=== PATIENT | female | born 1995 | race African-American/Black ===

== ENCOUNTER 2022-02-27 10:17 | Inpatient (IN) | payer MEDICAID, SELFPAY ==
[2022-02-27 10:19] VITALS: BP 130/91; PULSE 107; RESP 18; TEMP 36.4; O2SAT 98; BMI 24.9
--- NOTE | 2022-02-27 11:14 | EDS_ITS ---
HPI History of Present Illness Chief Complaint: ETOH Intox Informant: patient Narrative Narrative: Patient is a 26-year-old female with history of amphetamine and alcohol abuse presenting for detox. Patient states her last drink was this morning she also snorted meth this morning. She drinks about 1/5 a day of kaibab vodka. She denies any IV drug use. She denies a history of DTs but has been in detox before. She most recently was in detox in August 23 and was sober for about a month until he started drinking again. She denies any known history of hepatitis or HIV. Patient notes that she is currently living at home alone in an apartment and is starting to feel depressed which is what triggered her to come to the ER today for alcohol detox. She denies any thoughts wanting to or harm herself. She states sometimes she does punch her self. No other complaints at this time. No physical complaints. [facility] Medical History Alcohol abuse Allergy/AdvReac Type Severity Reaction Status Date / Time No Known Allergies Allergy Verified 02/27/22 10:22 Social History Smoking Status: Current every day smoker tobacco type: cigarettes ROS ROS ED Constitutional Constitutional ED: Denies chills or fever(s) Eyes Eyes: Denies change in vision ENT ENT ED: Denies rhinorrhea or sore throat Cardiovascular Cardiovascular: Denies chest pain Respiratory/Chest Respiratory/Chest: Denies cough or dyspnea Gastrointestinal Gastrointestinal: Denies abdominal pain, nausea or vomiting Musculoskeletal Musculoskeletal: Denies arthralgias or myalgias Integumentary Denies rash Neurologic Neurologic: Denies headache(s) or weakness Psychiatric Psychiatric: Reports depression; Denies anxiety, suicidal ideation or suicidal thoughts EXAM Physical Exam Const Vital Signs: 02/27/22 10:19 02/27/22 11:19 Temperature 97.5 F L 98.9 F Temperature Source Temporal Temporal Pulse Rate 107 H 88 Respiratory Rate 18 16 Blood Pressure 130/91 H 128/78 H Blood Pressure Mean 104 94 Blood Pressure Source Monitor Pulse Ox 98 98 Oxygen Delivery Method Room Air Room Air Positive well nourished and well developed General Appearance ED: well developed and NAD HEENT Reports moist mucous membranes Eyes PERRL and EOMs intact bilaterally Neck supple and no JVD Chest Wall inspection of chest normal Resp normal respiratory effort and clear to auscultation bilaterally Cardio regular rhythm and no murmurs Rate: tachycardic GI soft to palpation, non-tender and non-distended Extremity General Extremety ED: Negative for edema or tenderness General Extremity: Negative for edema Neuro oriented x3 Neuro Narrative: No focal neurologic deficits appreciated Speech: speech normal Psych thought process normal Psych Narrative: Patient's affect is slightly inappropriate, she is smiling Mood & Affect: depressed Skin Lesions: no lesions Rashes: no rashes MDM MDM MDM Narrative Medical decision making narrative: Patient is evaluated for request of alcohol detox. Patient will be medically screened and then I will consult to the medicine team for detox. Patient is asking if she will be prescribed Vivitrol upon discharge. I informed her she will need to talk to addiction medicine specialist about that. Patient is admitted to the hospital service. She has a mild transaminitis I suspect secondary to her chronic alcohol use and her potassium is 3.1. Is ordered oral potassium supplementation. Magnesium level is ordered as well. Lab Data Attestation: I reviewed the patient's lab results. Labs: Laboratory Results - last 24 hr 02/27/22 11:12 Sodium 140 Potassium 3.1 L Chloride 105 Carbon Dioxide 27.0 Anion Gap 8 BUN 7 Creatinine 0.58 Estim Creat Clear Calc 141.68 Est GFR (MDRD) Af Amer 159 Est GFR (MDRD) Non-Af 131 BUN/Creatinine Ratio 12.0 Glucose 85 Calcium 8.8 Total Bilirubin 0.60 AST 56 H ALT 79 H Alkaline Phosphatase 91 Total Protein 6.8 Albumin 3.5 Globulin 3.3 Albumin/Globulin Ratio 1.1 Discharge Plan Triage Chief Complaint: ETOH Intox ED Provider: Georgia Rollins Dx/Rx/DC Orders Clinical Impression: Alcohol abuse, Alcohol dependence, Hypokalemia, Abnormal transaminases Primary Care Provider: Quintin Gonzalez Referrals: QUINTIN TORRE [Other] Disposition Disposition: Acute Care [facility]
[2022-02-27 11:19] VITALS: BP 128/78; PULSE 88; RESP 16; TEMP 37.2; O2SAT 98
[2022-02-27 11:25] LABS: Absolute Lymphocyte Count 2.64 X10^3/uL (0.83-4.51); Absolute Neutrophil Count 5.2 X10^3/uL (2.0-7.7); Basophil# 0.03 X10^3/uL; Basophil% 0.3 % (0-1); Eosinophil# 0.16 X10^3/uL; Eosinophils% 1.8 % (0-5); Hematocrit 46.7 % (37-47); Hemoglobin 15.6 g/dL (12.0-15.0); Lymphocyte # 2.64 X10^3/ul (0.83-4.51); Lymphocyte % 30.3 % (19-41); Mean Corp Hgb Conc 33.4 g/dL (32-36); Mean Corpuscular Hgb 32.4 pg (27.0-32.0); Mean Corpuscular Volume 96.9 fL (81-99); Mean Platelet Vol. 8.5 fl (6.2-12.0); Monocyte# 0.64 X10^3/uL; Monocyte% 7.4 % (0-10); NRBC Flagged by Analyzer 0 % (0-5); Neutrophil # 5.21 X10^3/uL (2.7-7.7); Platelet Count 323 K/mm3 (150-450); RBC Distribution Width CV 14.3 % (11.6-14.6); RBC Distribution Width SD 50.9 fl (35.1-43.9); Red Blood Count 4.82 M/mm3 (4.2-5.4); White Blood Count 8.7 K/mm3 (4.4-11.0)
[2022-02-27 11:41] LABS: ALB/GLOB Ratio 1.1 RATIO (0.9-2.4); AST(SGOT) 56 U/L (15-37); Alanine Aminotransfer ALT/SGPT 79 U/L (13-56); Albumin, Serum 3.5 g/dL (3.2-5.0); Alkaline Phosphatase 91 U/L (45-117); Anion Gap 8 (5-15); BUN 7 mg/dL (7-18); Calcium,Total 8.8 mg/dL (8.5-10.1); Chloride 105 mmol/L (98-107); Creatinine, Serum 0.58 mg/dL (0.55-1.02); EST Glomerular Filtration Rate 131 mL/min (>60); Est Glom Filt Rate - Afr Amer 159 mL/min (>60); Estimated Creatinine Clearance 141.68 ml/min; Globulin 3.3 g/dL (2.2-4.2); Glucose 85 mg/dL (74-106); Potassium 3.1 mmol/L (3.5-5.1); Protein, Total 6.8 g/dL (6.4-8.2); Sodium Level 140 mmol/L (136-145)
[2022-02-27] MEDS: Potassium Chloride Oral Tablet 20 MEQ PO (11:50)
--- NOTE | 2022-02-27 11:52 | NURSING ---
DR HADLEY TSE
--- NOTE | 2022-02-27 11:53 | PCM.HP.STD ---
HPI - General General Date of Admission: 02/27/22 Date of Service: 02/27/22 Chief Complaint: Desire for detoxification HPI Narrative PARK PATTERSON, is a 26 F with past medical history significant for alcohol dependence presented to the emergency department with desire for detoxification. Patient admits to drinking vodka daily. She drinks about 2 pints a day. She also admitted to tobacco use as well as methamphetamine use. On further questioning patient denied any tremors. No hallucination no nausea no vomiting. Admitted to regular nursing floor for medical stabilization [facility] Medical History Alcohol abuse Allergy/AdvReac Type Severity Reaction Status Date / Time No Known Allergies Allergy Verified 02/27/22 10:22 no significant family history Social History Smoking Status: Current every day smoker tobacco type: cigarettes ROS ROS Narrative GENERAL: denies fever, chills, night sweats, weight loss, anorexia HEENT: denies headache, sinus congestion, or drainage, dysphagia RESPIRATORY: denies cough, sputum production, shortness of breath, dyspnea on exertion CARDIAC: denies chest pain, palpitations, orthopnea, PND GASTROINTESTINAL: denies abdominal pain, nausea, vomiting, melena, GENITOURINARY: denies dysuria, urgency, frequency, heamaturia EXTREMITY: denies swelling MUSCULOSKELETAL: denies current joint pain or tenderness NEUROLOGIC: denies focal numbness, weakness, tingling HEMATOLOGIC: denies easy bruising and/or hemorrhage INTEGUMENT: denies rashes PSYCHIATRIC: denies suicidal or homicidal ideation Vital Signs Vital Signs Vital Signs: 02/27/22 10:19 02/27/22 11:19 Temperature 97.5 F L 98.9 F Temperature Source Temporal Temporal Pulse Rate 107 H 88 Respiratory Rate 18 16 Blood Pressure 130/91 H 128/78 H Blood Pressure Mean 104 94 Blood Pressure Source Monitor Pulse Ox 98 98 Oxygen Delivery Method Room Air Room Air Weight Weight: 72.121 kg Body Mass Index (BMI) 24.9 Physical Exam Narrative GENERAL: cooperative HEENT: Atraumatic; EYES; Anicteric, Normal Conjunctiva NECK; supple, normal thyroid, RESPIRATORY: Diminished to auscultation CARDIOVASCULAR: Regular S1 S2, GI: soft, normoactive bowel sounds, : No Renal angle tenderness; EXTREMITIES: No edema, no clubbing, MUSCULOSKELETAL: no muscle wasting NEURO: Awake; no lateralizing signs. SKIN: No Rash PSYCH; Flat affect Results Lab / Micro Data Result Diagrams: 02/27/22 11:12 Labs: Laboratory Results - last 24 hr 02/27/22 11:12: Sodium 140, Potassium 3.1 L, Chloride 105, Carbon Dioxide 27.0, Anion Gap 8, BUN 7, Creatinine 0.58, Estim Creat Clear Calc 141.68, Est GFR (MDRD) Af Amer 159, Est GFR (MDRD) Non-Af 131, BUN/Creatinine Ratio 12.0, Glucose 85, Calcium 8.8, Total Bilirubin 0.60, AST 56 H, ALT 79 H, Alkaline Phosphatase 91, Total Protein 6.8, Albumin 3.5, Globulin 3.3, Albumin/Globulin Ratio 1.1 Assessment & Plan Assessment/Plan (1) Alcohol abuse: (2) Alcohol dependence: (3) Hypokalemia: (4) Abnormal transaminases: PLAN: Plan Patient is a 26-year-old lady admitted with desire to undergo detoxification from chronic alcohol dependence 1. Acute alcohol dependence with desire for detoxification ? Patient has been admitted to regular nursing floor for medical stabilization using phenobarb taper 2. Hypokalemia ? Corrected per protocol 3. Elevated LFTs ? Secondary to alcohol use we will monitor 4. Polysubstance abuse ? Including methamphetamine and alcohol counseled on cessation 5. Mild intermittent asthma ? Patient is on albuterol as needed 6. Tobacco dependence - Counseled on cessation, offered nicotine patch for tobacco cravings 7. DVT prophylaxis ? Low risk did encourage ambulation Charges/Coding Visit Charges Inpatient E&M: 41265 Init Hosp L2
[2022-02-27 11:56] LABS: Internal QC Validated? YES +Cl - CLEAR BKGD; Pregnancy, Serum, hCG Quali. NEGATIVE Negative
[2022-02-27 11:57] VITALS: BP 114/78; PULSE 78; RESP 16; TEMP 37.2; O2SAT 98
[2022-02-27 12:23] VITALS: BMI 24.9
[2022-02-27 12:28] VITALS: BP 111/75; PULSE 90; RESP 18; TEMP 36.7; O2SAT 100
[2022-02-27] MEDS: Lactated Ringers 1,000 ML 125 ML IV (12:44)
[2022-02-27] MEDS: Potassium Chloride Oral Tablet 20 MEQ 40 MEQ PO (12:59)
[2022-02-27] MEDS: Phenobarbital 32.4 MG Tablet PO ×3 (12:59→19:52)
[2022-02-27] MEDS: 0.9% Saline Lock 10 ML Syringe IV (12:59)
[2022-02-27 13:04] LABS: Amphetamine Urine VISTA POSITIVE (<1000 ng/mL); Barbiturate Urine VISTA NEGATIVE (< 200 ng/mL); Benzodiazepine Urine VISTA NEGATIVE (< 200 ng/mL); Cocaine Urine VISTA NEGATIVE (< 300 ng/mL); Ecstacy Urine VISTA POSITIVE (< 500 ng/mL); Methadone Urine VISTA NEGATIVE (< 300 ng/mL); PCP Urine VISTA NEGATIVE (< 25 ng/mL); THC Urine VISTA NEGATIVE (< 50 ng/mL); Vista UDS pH Range 6
[2022-02-27 16:21] VITALS: BP 124/84; PULSE 89; RESP 18; TEMP 36.5; O2SAT 99
[2022-02-27] MEDS: [UNRECOGNIZED DRUG - OTHER] PO (17:11)
[2022-02-27 19:45] VITALS: BP 119/71; PULSE 92; RESP 16; TEMP 36.6; O2SAT 100
[2022-02-28 00:28] VITALS: BP 116/80; PULSE 86; RESP 14; TEMP 36.7; O2SAT 100
[2022-02-28] MEDS: Phenobarbital 32.4 MG Tablet PO ×6 (00:30→20:44)
[2022-02-28 05:09] VITALS: BP 104/75; PULSE 81; RESP 16; TEMP 36.5; O2SAT 99
--- NOTE | 2022-02-28 07:56 | PN.HOSP_ITS ---
Subjective Subjective Patient is a 26-year-old lady with history of alcoholic dependence presented wanting to undergo medical stabilization. Admitted to regular nursing floor currently on phenobarb taper Objective Data Objective Data Vital Signs: Vital Signs Temp Pulse Resp BP Pulse Ox O2 Del Method 97.7 F L 81 16 104/75 99 Room Air 02/28/22 05:09 02/28/22 05:09 02/28/22 05:09 02/28/22 05:09 02/28/22 05:02/28/22 05:09 Oxygen Delivery Method Room Air Weight: 72.121 kg Body Mass Index (BMI) 24.9 Intake & Output: Intake and Output for Last 24 Hours 02/26/22 02/27/22 02/28/22 23:59 23:59 23:59 Intake Total 572.92 / 572.92 Balance 572.92 / 572.92 Lab / Micro Data Result Diagrams: 02/27/22 11:12 02/27/22 11:12 Labs: Laboratory Results - last 24 hr 02/27/22 11:12: WBC 8.7, RBC 4.82, Hgb 15.6 H, Hct 46.7, MCV 96.9, MCH 32.4 H, MCHC 33.4, RDW Std Deviation 50.9 H, RDW Coeff of Nito 14.3, Plt Count 323, MPV 8.5, Immature Gran % (Auto) 0.200, Neut % (Auto) 60.0, Lymph % (Auto) 30.3, Sargent % (Auto) 7.4, Eos % (Auto) 1.8, Baso % (Auto) 0.3, Absolute Neuts (auto) 5.2, Absolute Lymphs (auto) 2.64, Nucleated RBC % 0 02/27/22 11:12: Serum , Qual NEGATIVE 02/27/22 11:12: Sodium 140, Potassium 3.1 L, Chloride 105, Carbon Dioxide 27.0, Anion Gap 8, BUN 7, Creatinine 0.58, Estim Creat Clear Calc 141.68, Est GFR (MDRD) Af Amer 159, Est GFR (MDRD) Non-Af 131, BUN/Creatinine Ratio 12.0, Glucose 85, Calcium 8.8, Total Bilirubin 0.60, AST 56 H, ALT 79 H, Alkaline Phosphatase 91, Total Protein 6.8, Albumin 3.5, Globulin 3.3, Albumin/Globulin Ratio 1.1 02/27/22 11:12: Ethyl Alcohol 135.0 02/27/22 11:12: Magnesium 2.0 02/27/22 12:40: Urine Opiates Screen NEGATIVE, Urine Methadone Screen NEGATIVE, Ur Barbiturates Screen NEGATIVE, Ur Phencyclidine Scrn NEGATIVE, Ur Amphetamines Screen POSITIVE H, MDMA (Ecstasy) Screen POSITIVE H, U Benzodiazepines Scrn NEGATIVE, Urine Cocaine Screen NEGATIVE, U Cannabinoids Screen NEGATIVE, Ur Drug Screen Comment Physical Exam Narrative GENERAL: cooperative HEENT: Atraumatic; EYES; Anicteric, Normal Conjunctiva NECK; supple, normal thyroid, RESPIRATORY: Diminished to auscultation CARDIOVASCULAR: Regular S1 S2, GI: soft, normoactive bowel sounds, : No Renal angle tenderness; EXTREMITIES: No edema, no clubbing, MUSCULOSKELETAL: no muscle wasting NEURO: Awake; no lateralizing signs. SKIN: No Rash PSYCH; Flat affect Assessment & Plan Assessment/Plan (1) Alcohol abuse: (2) Alcohol dependence: (3) Hypokalemia: (4) Abnormal transaminases: PLAN: Plan Patient is a 26-year-old lady admitted with desire to undergo detoxification from chronic alcohol dependence 1. Acute alcohol dependence with desire for detoxification ? Patient has been admitted to regular nursing floor for medical stabilization using phenobarb taper ? 02/28/2022 patient has tolerated the phenobarb taper well so far 2. Hypokalemia ? Corrected per protocol 3. Elevated LFTs ? Secondary to alcohol use we will monitor 4. Polysubstance abuse ? Including methamphetamine and alcohol counseled on cessation 5. Mild intermittent asthma ? Patient is on albuterol as needed 6. Tobacco dependence - Counseled on cessation, offered nicotine patch for tobacco cravings 7. DVT prophylaxis ? Low risk did encourage ambulation Charges/Coding Visit Charges Inpatient E&M: 87393 Subs Hosp L2
[2022-02-28] MEDS: Folic Acid 1 MG Tablet PO (08:57)
[2022-02-28] MEDS: Thiamine Hydrochloride 100 MG Tablet PO (08:57)
[2022-02-28 09:00] VITALS: BP 107/75; PULSE 79; RESP 18; TEMP 36.6; O2SAT 100
--- NOTE | 2022-02-28 11:49 | ADDICTION ---
Addendum entered by Li Issa 03/01/22 10:42: This senior copywriter spoke with pt this morning and informed TW that she would be admitting to [facility] on Friday. She reported that she gave me the wrong city. Ruslan, peer supporter, will transport to residential on Friday. Original Note: This senior copywriter met with PT to conduct ASAM, MSE, AUDIT, DUDIT assessments and to plan for d/c. PT A+Ox4 and participated actively. All assessments completed and placed in PT's chart. PT plans to f/u with follow-up treatment services, at the [facility] in [place]. PT did not indicate a need for transportation post d/c from [facility].
[2022-02-28] MEDS: Ondansetron 8 MG Tablet PO ×2 (12:32→20:44)
[2022-02-28 13:18] VITALS: BP 113/82; PULSE 87; RESP 18; TEMP 36.4; O2SAT 100
[2022-02-28 19:00] VITALS: BP 94/52; PULSE 85; RESP 18; TEMP 36.9; O2SAT 99
[2022-03-01 01:12] VITALS: BP 108/49; PULSE 78; RESP 16; TEMP 36.6; O2SAT 100
[2022-03-01] MEDS: Phenobarbital 32.4 MG Tablet PO ×6 (01:15→20:02)
[2022-03-01 04:52] VITALS: BP 111/75; PULSE 66; RESP 16; TEMP 36.4; O2SAT 100
--- NOTE | 2022-03-01 08:11 | PCM.PN.HOSP ---
Subjective Subjective Patient seen complaining of a spinning sensation prescribed Antivert for symptomatic relief Objective Data Objective Data Vital Signs: Vital Signs Temp Pulse Resp BP Pulse Ox O2 Del Method 97.5 F L 66 16 111/75 100 Room Air 03/01/22 04:52 03/01/22 04:52 03/01/22 04:52 03/01/22 04:52 03/01/22 04:52 03/01/22 04:52 Oxygen Delivery Method Room Air Weight: 72.121 kg Body Mass Index (BMI) 24.9 Intake & Output: Intake and Output for Last 24 Hours 02/27/22 02/28/22 03/01/22 23:59 23:59 23:59 Intake Total 572.92 / 572.92 Balance 572.92 / 572.92 Lab / Micro Data Result Diagrams: 02/27/22 11:12 02/27/22 11:12 Physical Exam Narrative GENERAL: cooperative HEENT: Atraumatic; EYES; Anicteric, Normal Conjunctiva NECK; supple, normal thyroid, RESPIRATORY: Diminished to auscultation CARDIOVASCULAR: Regular S1 S2, GI: soft, normoactive bowel sounds, : No Renal angle tenderness; EXTREMITIES: No edema, no clubbing, MUSCULOSKELETAL: no muscle wasting NEURO: Awake; no lateralizing signs. SKIN: No Rash PSYCH; Flat affect Assessment & Plan Assessment/Plan (1) Alcohol abuse: (2) Alcohol dependence: (3) Hypokalemia: (4) Abnormal transaminases: PLAN: Plan Patient is a 26-year-old lady admitted with desire to undergo detoxification from chronic alcohol dependence 1. Acute alcohol dependence with desire for detoxification ? Patient has been admitted to regular nursing floor for medical stabilization using phenobarb taper ? 02/28/2022 patient has tolerated the phenobarb taper well so far ?03/01/2022; Patient seen complaining of a spinning sensation prescribed Antivert for symptomatic 2. Hypokalemia ? Corrected per protocol 3. Elevated LFTs ? Secondary to alcohol use we will monitor 4. Polysubstance abuse ? Including methamphetamine and alcohol counseled on cessation 5. Mild intermittent asthma ? Patient is on albuterol as needed 6. Tobacco dependence - Counseled on cessation, offered nicotine patch for tobacco cravings 7. DVT prophylaxis ? Low risk did encourage ambulation Charges/Coding Visit Charges Inpatient E&M: 46563 Subs Hosp L2
[2022-03-01] MEDS: Folic Acid 1 MG Tablet PO (09:18)
[2022-03-01] MEDS: Thiamine Hydrochloride 100 MG Tablet PO (09:19)
[2022-03-01 11:00] VITALS: BP 105/70; PULSE 80; RESP 18; TEMP 36.6; O2SAT 98
[2022-03-01 16:52] VITALS: BP 110/78; PULSE 86; RESP 16; TEMP 36.9; O2SAT 100
[2022-03-01 20:01] VITALS: BP 113/73; PULSE 83; RESP 16; TEMP 36.7; O2SAT 99
[2022-03-02 02:45] VITALS: BP 100/62; PULSE 83; RESP 16; TEMP 36.6; O2SAT 99
[2022-03-02] MEDS: Phenobarbital 32.4 MG Tablet PO ×4 (02:48→20:23)
--- NOTE | 2022-03-02 07:29 | PCM.PN.HOSP ---
Subjective Subjective Patient seen, admits to improvement in her dizziness with meclizine. Plan is for patient to be transferred to an inpatient rehab facility?[facility] on 03/04/2022 Objective Data Objective Data Vital Signs: Vital Signs Temp Pulse Resp BP Pulse Ox O2 Del Method 97.9 F 83 16 100/62 99 Room Air 03/02/22 02:45 03/02/22 02:45 03/02/22 02:45 03/02/22 02:45 03/02/22 02:45 03/02/22 02:45 Oxygen Delivery Method Room Air Weight: 72.121 kg Body Mass Index (BMI) 24.9 Lab / Micro Data Result Diagrams: 02/27/22 11:12 02/27/22 11:12 Physical Exam Narrative GENERAL: cooperative HEENT: Atraumatic; EYES; Anicteric, Normal Conjunctiva NECK; supple, normal thyroid, RESPIRATORY: Diminished to auscultation CARDIOVASCULAR: Regular S1 S2, GI: soft, normoactive bowel sounds, : No Renal angle tenderness; EXTREMITIES: No edema, no clubbing, MUSCULOSKELETAL: no muscle wasting NEURO: Awake; no lateralizing signs. SKIN: No Rash PSYCH; Flat affect Assessment & Plan Assessment/Plan (1) Alcohol abuse: (2) Alcohol dependence: (3) Hypokalemia: (4) Abnormal transaminases: PLAN: Plan Patient is a 26-year-old lady admitted with desire to undergo detoxification from chronic alcohol dependence 1. Acute alcohol dependence with desire for detoxification ? Patient has been admitted to regular nursing floor for medical stabilization using phenobarb taper ? 02/28/2022 patient has tolerated the phenobarb taper well so far ?03/01/2022; Patient seen complaining of a spinning sensation prescribed Antivert for symptomatic ?03/02/2022; Patient seen, admits to improvement in her dizziness with meclizine. Plan is for patient to be transferred to an inpatient rehab facility?[facility] on 03/04/2022 2. Hypokalemia ? Corrected per protocol 3. Elevated LFTs ? Secondary to alcohol use we will monitor 4. Polysubstance abuse ? Including methamphetamine and alcohol counseled on cessation 5. Mild intermittent asthma ? Patient is on albuterol as needed 6. Tobacco dependence - Counseled on cessation, offered nicotine patch for tobacco cravings 7. DVT prophylaxis ? Low risk did encourage ambulation Charges/Coding Visit Charges Inpatient E&M: 32481 Subs Hosp L2
[2022-03-02 09:13] VITALS: BP 104/73; PULSE 81; RESP 16; TEMP 36.7; O2SAT 98
[2022-03-02] MEDS: Folic Acid 1 MG Tablet PO (09:13)
[2022-03-02] MEDS: Thiamine Hydrochloride 100 MG Tablet PO (09:13)
[2022-03-02 14:30] VITALS: BP 105/71; PULSE 73; RESP 18; TEMP 36.7; O2SAT 100
[2022-03-02] MEDS: Senna Tablet 2 TABLET PO (20:28)
[2022-03-02] MEDS: Ondansetron 8 MG Tablet PO (20:28)
[2022-03-02 20:30] VITALS: BP 98/65; PULSE 82; RESP 16; O2SAT 99
[2022-03-02 20:32] VITALS: BP 98/65; PULSE 82; RESP 16; TEMP 36.6; O2SAT 99
[2022-03-03] MEDS: Phenobarbital 32.4 MG Tablet PO ×3 (02:37→15:36)
[2022-03-03 02:42] VITALS: BP 107/66; PULSE 67; RESP 16; TEMP 36.5; O2SAT 99
--- NOTE | 2022-03-03 07:57 | PCM.PN.HOSP ---
Subjective Subjective Had a relatively uneventful night. Plan is for patient to be transferred to [facility] facility to continue with her rehab Objective Data Objective Data Vital Signs: Vital Signs Temp Pulse Resp BP Pulse Ox O2 Del Method 97.7 F L 67 16 107/66 99 Room Air 03/03/22 02:42 03/03/22 02:42 03/03/22 02:42 03/03/22 02:42 03/03/22 02:42 03/03/22 02:42 Oxygen Delivery Method Room Air Weight: 72.121 kg Body Mass Index (BMI) 24.9 Lab / Micro Data Result Diagrams: 02/27/22 11:12 02/27/22 11:12 Physical Exam Narrative GENERAL: cooperative HEENT: Atraumatic; EYES; Anicteric, Normal Conjunctiva NECK; supple, normal thyroid, RESPIRATORY: Diminished to auscultation CARDIOVASCULAR: Regular S1 S2, GI: soft, normoactive bowel sounds, : No Renal angle tenderness; EXTREMITIES: No edema, no clubbing, MUSCULOSKELETAL: no muscle wasting NEURO: Awake; no lateralizing signs. SKIN: No Rash PSYCH; Flat affect Assessment & Plan Assessment/Plan (1) Alcohol abuse: (2) Alcohol dependence: (3) Hypokalemia: (4) Abnormal transaminases: PLAN: Plan Patient is a 26-year-old lady admitted with desire to undergo detoxification from chronic alcohol dependence 1. Acute alcohol dependence with desire for detoxification ? Patient has been admitted to regular nursing floor for medical stabilization using phenobarb taper ? 02/28/2022 patient has tolerated the phenobarb taper well so far ?03/01/2022; Patient seen complaining of a spinning sensation prescribed Antivert for symptomatic ?03/02/2022; Patient seen, admits to improvement in her dizziness with meclizine. Plan is for patient to be transferred to an inpatient rehab facility?[facility] on 03/04/2022 -03/03/2022; Had a relatively uneventful night. Plan is for patient to be transferred to [facility] residential facility to continue with her rehab 2. Hypokalemia ? Corrected per protocol 3. Elevated LFTs ? Secondary to alcohol use we will monitor 4. Polysubstance abuse ? Including methamphetamine and alcohol counseled on cessation 5. Mild intermittent asthma ? Patient is on albuterol as needed 6. Tobacco dependence - Counseled on cessation, offered nicotine patch for tobacco cravings 7. DVT prophylaxis ? Low risk did encourage ambulation Charges/Coding Visit Charges Inpatient E&M: 16859 Subs Hosp L2
[2022-03-03] MEDS: Folic Acid 1 MG Tablet PO (09:54)
[2022-03-03] MEDS: Thiamine Hydrochloride 100 MG Tablet PO (09:54)
[2022-03-03 09:55] VITALS: BP 93/57; PULSE 82; RESP 18; TEMP 36.7; O2SAT 97
[2022-03-03 15:54] VITALS: BP 106/67; PULSE 78; RESP 18; TEMP 36.6; O2SAT 98
[2022-03-03] MEDS: hydrOXYzine PAM 25 MG Capsule 50 MG PO (19:52)
[2022-03-03] MEDS: traZODone 100 MG Tablet PO (20:44)
[2022-03-03 20:54] VITALS: BP 122/84; PULSE 73; RESP 16; TEMP 36.5; O2SAT 99
[2022-03-04 02:17] VITALS: BP 119/76; PULSE 70; RESP 16; TEMP 36.6; O2SAT 99
[2022-03-04 10:52] VITALS: BP 90/57; PULSE 88; RESP 16; TEMP 36.8; O2SAT 98
--- NOTE | 2022-03-04 11:51 | DS.PCM_ITS ---
Providers Date of Admission: 02/27/22 Primary Care Physician: Dr. Rose Marie Gonzalez DO Reason For Visit: ACUTE ALCOHOL WITHDRAWAL Diagnosis Discharge Diagnosis (1) Alcohol abuse: Status: Acute Code(s): F10.10 - Alcohol abuse, uncomplicated (2) Alcohol dependence: Status: Acute Code(s): F10.20 - Alcohol dependence, uncomplicated (3) Hypokalemia: Status: Acute Code(s): E87.6 - Hypokalemia (4) Abnormal transaminases: Status: Acute Code(s): R74.8 - Abnormal levels of other serum enzymes Hospital Course Operations None Procedures None Summary of Care Provided Hospital Course: Is a 26-year-old female presenting for acute alcohol withdrawal. Patient was placed on phenobarbital, thiamine and folate as well as other adjunctive medications help with somatic complaints. Course was uncomplicated. Patient will be discharged to the residential program at [facility]. Weight / BMI Weight Weight: 72.121 kg Body Mass Index (BMI) 24.9 ABG / Lab / Microbiology Data Result Diagrams: 02/27/22 11:12 02/27/22 11:12 D/C Instructions Discharge Diet: No restrictions Meaningful Use Info Meaningful Use Diagnoses (Choose all that apply): None applicable Discharge Plan Admission Admit Date/Time: 02/27/22 11:53 Attending Provider: Bereket Peralta Primary Care Provider: Rose Marie Gonzalez Consulting Providers: Ayaan Dominguez Discharge Orders/Prescriptions Referrals / Follow Up: ROSE MARIE TORRE [Other] Rose Marie Gonzalez DO [Primary Care Provider] - Disposition Disposition (needs filled in before D/C Order can be placed): Home, Self Care Charges/Coding Visit Charges Inpatient E&M: 50874 Disch Hosp
--- NOTE | 2022-03-04 11:53 | DCINST_ITS ---
Discharge Instructions Diet Discharge Diet: No restrictions Follow Up Care Test Results: Test results from this visit will be discussed in further detail at your follow- up appointment, if applicable. Discharge Plan Admission Admit Date/Time: 02/27/22 11:53 Attending Provider: Bereket Peralta Primary Care Provider: Rose Marie Gonzalez Consulting Providers: Ayaan Dominguez Discharge Orders/Prescriptions Referrals / Follow Up: ROSE MARIE TORRE [Other] Rose Marie Gonzalez DO [Primary Care Provider] - Disposition Disposition (needs filled in before D/C Order can be placed): Home, Self Care
== END 2022-03-04 11:59 | disposition home or self-care (01) | DRG 775 ==
LOC: ED 11:54 → MS3 12:05
PROVIDERS: Admitting Provider Internal Medicine; Emergency Provider Emergency Medicine; PCP Family Medicine
DX: F10.239 Alcohol dependence with withdrawal, unspecified (principal); E87.6 Hypokalemia; F15.10 Other stimulant abuse, uncomplicated; F17.210 Nicotine dependence, cigarettes, uncomplicated; J45.20 Mild intermittent asthma, uncomplicated
CPT/HCPCS: 80053; 80307; 82077; 83735; 84703; 85025; 99284; 99406; J7120; A4216